=== PATIENT | female | born 1950 | race Caucasian/White ===

== ENCOUNTER 2023-11-06 04:44 | Emergency (ER) | payer MEDICARE, OTHER ==
[~2023-11-06] VITALS: Ht 165.1 cm; Wt 84.9 kg
[~2023-11-06 04:44] MED LIST: ESTROPIPATE0.75 MG PO; HYDROCHLOROTHIA25 MG PO; METOPROLOL SUC100 MG PO; RESTORIL15 MG PO
[2023-11-06] MEDS ORDERED: ESTRADIOL0.5 MG PO (04:55)
[2023-11-06] MEDS ORDERED: NITROGLYCERIN PACKET TOP ONE (05:00)
[2023-11-06] MEDS ORDERED: MORPHINE SULFATE 4 MG/ML VIAL IV ONE (05:00)
[2023-11-06] MEDS ORDERED: ASPIRIN 81 MG CHEW PO ONE (05:00)
[2023-11-06 05:05] LABS: PLATELET COUNT 206 K/uL (140-440); RDW 14.3 (10.5-15.0)
[2023-11-06 05:07] LABS: BASOPHILS 0.8 % (0-2); EOSINOPHILS 1.3 % (0-6); HEMATOCRIT 46.2 % (35.0-50.0); HEMOGLOBIN 15.4 g/dL (12.0-18.0); LYMPHOCYTES 20.6 % (24-44); MCH 28.7 (27-36); MCHC 33.4 g/dl (30-36); MCV 85.8 fl (81-99); MONOCYTES 5.5 % (0-12); NEUTROPHILS 71.8 % (39-80); RBC 5.39 M/ul (4.3-5.7)
[2023-11-06 05:13] LABS: INR 0.96 (0.80-1.30); PROTIME 12.1 Sec (11.2-14.2)
[2023-11-06] MEDS ORDERED: ondansetron HCL 4 MG/2 ML VIAL IV ONE (05:15)
[2023-11-06 05:25] LABS: ALBUMIN 3.2 g/dL (3.4-5.0); ALBUMIN/GLOBULIN RATIO 0.78 (1.1-2.4); ANION GAP 14.2 (7-21); BILIRUBIN, TOTAL 0.4 ng/dL (0.2-1.0); BUN/CREATININE RATIO 15.53 (6.0-28.6); CALCIUM 9.3 mg/dL (8.5-10.1); CREATININE, SERUM 1.03 mg/dL (0.55-1.02); MAGNESIUM 1.8 mg/dL (1.8-2.4); POTASSIUM 3.2 mmol/L (3.5-5.1); PROTEIN, TOTAL 7.3 g/dL (6.4-8.2)
[2023-11-06] MEDS ORDERED: HEParin SOD (PORCINE) 5,000 UNIT/ML VIAL IV ONE (05:30)
[2023-11-06] MEDS ORDERED: HEPARIN SOD,PORK IN 0.45% NACL 500 ML IV SCH (05:30)
[2023-11-06 08:50] VITALS: BP 135/84
--- NOTE | 2023-11-06 19:31 | EKG ---
[facility] [address] [facility] [place] [address] Signed Normal sinus rhythm Inferior infarct , age undetermined Cannot rule out Anterior infarct , age undetermined Abnormal ECG No previous ECGs available Confirmed by BRII SPRINGER MD ([id number]) on 11/06/2023 7:31:05 PM Electronically Signed By: BRII SPRINGER 11/06/231930 PATIENT NAME: DANIEL MCDONALD Electrocardiogram DATE OF : 54 PHYSICIAN: BRII SPRINGER REPORT #: [id number] REPORT IS CONFIDENTIAL AND NOT TO BE RELEASED WITHOUT AUTHORIZATION
== END 2023-11-06 08:50 | disposition short-term general hospital (02) ==
LOC: ED 04:44
PROVIDERS: Family Medicine
DX: I26.99 Other pulmonary embolism without acute cor pulmonale (principal); I10 Essential (primary) hypertension; R79.89 Other specified abnormal findings of blood chemistry; Z79.899 Other long term (current) drug therapy
CPT/HCPCS: 36415; 71045; 71260; 80053; 83605; 83735; 83880; 84484; 85025; 85379; 85610; 85730; 93005; 93010; 99285-25; A9270; J1644; J2405; Q9967

== ENCOUNTER 2025-01-02 13:06 | Day surgery (SDC) | payer MEDICARE, OTHER ==
[~2025-01-02] VITALS: Ht 165.1 cm; Wt 78.1 kg
[~2025-01-02 13:06] MED LIST changes: +ESTRADIOL0.5 MG PO; +HEParin SOD (PORCINE) 5,000 UNIT/ML SDV SUB-Q SCH; +IBLOOD GLUCOSE TEST STRIP 1 EA TEST VI PRN; +LACTATED RINGER'S 1,000 ML IV SCH; +LIDOCAINE HCL 1% 5 ML SDV INJ ONE; +MIDAZOLAM HCL 5 MG/5 ML VIAL IV PRN; +fentaNYL citrate 100 MCG/2 ML VIAL IV PRN
[2025-01-02 13:34] VITALS: BP 119/74
[2025-01-02] MEDS ORDERED: fentaNYL citrate 100 MCG/2 ML VIAL ONE (13:41)
[2025-01-02] MEDS ORDERED: MIDAZOLAM HCL 5 MG/5 ML VIAL ONE (13:41)
--- NOTE | 2025-01-02 14:45 | NUR ---
01/02/[address] PRESENTS TO PATIENT'S BEDSIDE. HER QUESTIONS ARE ANSWERED.
[2025-01-02 15:16] VITALS: BP 123/73
--- NOTE | 2025-01-04 16:35 | OR ---
[facility] [address] [place], [place] [address] Signed DATE OF OPERATION: 01/02/2025 SURGEON: Darryl Murrieta MD PREOPERATIVE DIAGNOSIS: Colon screening. POSTOPERATIVE DIAGNOSIS: Normal colon to cecum. PROCEDURE: Total colonoscopy to cecum. ANESTHESIA: Intravenous sedation fentanyl 100 mcg and Versed 5 mg. 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 Colonoscopy followup in 2019 showed edema of the colon, but no polyps. She has no current symptoms of bleeding, diarrhea or constipation and no family history of colon cancer. She is admitted to undergo colonoscopy for screening, understands the risk of bleeding, infection, and perforation. FINDINGS: The prep was excellent. Complete colonoscopy was undertaken of the cecum without question. Good visualization was noted throughout. She had no evidence of polyps, diverticular formation, colitis, or cancer. DESCRIPTION OF PROCEDURE: The patient was brought to the endoscopy suite and placed in lateral decubitus position, given intravenous sedation to the point of slurred speech and nystagmus. Heparin 5000 units was administered preoperatively as she has a history of pulmonary embolism, though not chronically anticoagulated. After satisfactory intravenous sedation to the point of slurred speech and nystagmus digital rectal examination was performed. Olympus video colonoscope was passed in the rectum and manipulated throughout the colon ultimately intubating the cecum itself. The ileocecal valve and appendiceal orifice were normal. Scope was carefully withdrawn and examination from that point showed no evidence of abnormality specifically no polyps, diverticular formation, colitis, or cancer. Retroflexed view of the rectum was normal. Scope was removed. The patient was taken to recovery room in good condition. Electronically Signed By: DARRYL MURRIETA MD 01/04/25 1635 PATIENT NAME: DANIEL MCDONALD OPERATIVE REPORT DATE OF : 54 REPORT #: [id number] PHYSICIAN: DARRYL MURRIETA MD PCP: ZENON KOHLI MD REPORT IS CONFIDENTIAL AND NOT TO BE RELEASED WITHOUT AUTHORIZATION [facility] [address] [place], [place] [address] Signed CONCLUDING DIAGNOSIS: Normal colon to cecum. PLAN: Recommend repeat colonoscopy in 10 years, sooner if clinically indicated. She will return to the ongoing care of Dr. Juancho Kohli. MD ROMI Garcias/MODL /[id number] cc: Dr. Kohli Copies: ~ Electronically Signed By: DARRYL MURRIETA MD 01/04/25 1635 PATIENT NAME: DANIEL MCDONALD OPERATIVE REPORT DATE OF : 54 REPORT #: [id number] PHYSICIAN: DARRYL MURRIETA MD PCP: ZENON KOHLI MD REPORT IS CONFIDENTIAL AND NOT TO BE RELEASED WITHOUT AUTHORIZATION
== END 2025-01-02 15:25 | disposition home or self-care (01) ==
LOC: OPS 13:06 → DS 13:06 → OPS 14:00 → DS 14:00 → OPS 15:25
PROVIDERS: ATTEND Surgery
PROC: 0DJD8ZZ Inspection of Lower Intestinal Tract, Via Natural or Artificial Opening Endoscopic (ICD-10-PCS; principal; 2025-01-02 14:00)
DX: Z12.11 Encounter for screening for malignant neoplasm of colon (principal); Z86.0101 Personal history of adenomatous and serrated colon polyps; Z86.711 Personal history of pulmonary embolism; I10 Essential (primary) hypertension; Z79.899 Other long term (current) drug therapy
CPT/HCPCS: 99153; G0500; J1644; J2250; J3010; J7121